=== PATIENT | male | born 1960 | race Caucasian/White ===

== ENCOUNTER 2021-04-26 12:51 | Inpatient (IN) | payer OTHER ==
[2021-04-26 15:16] VITALS: BMI 28.6
[2021-04-26] MEDS ORDERED: METHOCARBAMOL 500 MG TABLET PO PRN (15:57)
[2021-04-26] MEDS ORDERED: ACETAMINOPHEN 325 MG TABLET (FP) PO PRN ×2 (15:57)
[2021-04-26] MEDS ORDERED: MAGNESIUM HYDROX 2400MG/30ML ORAL SUSPENSION 30 ML CUP PO PRN (15:57)
[2021-04-26] MEDS ORDERED: diazePAM 5 MG TABLET PO ONE (15:57)
[2021-04-26] MEDS ORDERED: MENTHOL/PHENOL 1 EACH UD MM PRN (15:57)
[2021-04-26] MEDS ORDERED: BISMUTH SUBSALICYLATE 524 MG/30 ML PO PRN (15:57)
[2021-04-26] MEDS ORDERED: ONDANSETRON *ODT* 4 MG TABLET SL PRN (15:57)
[2021-04-26] MEDS ORDERED: MAGNESIUM CITRATE 300 ML BOTTLE PO PRN (15:57)
[2021-04-26] MEDS ORDERED: MAG HYDROX/AL HYDROX/SIMETH 30 ML UNIT-DOSE CUP PO PRN (15:57)
[2021-04-26] MEDS ORDERED: IBUPROFEN 400 MG TABLET (FP) PO PRN (15:57)
[2021-04-26] MEDS ORDERED: hydrOXYzine PAMOATE 25 MG CAPSULE (FP) PO PRN (15:57)
[2021-04-26] MEDS ORDERED: NICOTINE 10 MG CARTRIDGE (INHALER) IH PRN (15:57)
[2021-04-26] MEDS: MUPIROCIN 2% TOPICAL OINTMENT 22 GM TUBE TP SCH (22:32)
[2021-04-26] MEDS: MELATONIN 5 MG TABLETS PO SCH (22:33)
[2021-04-26] MEDS: diazePAM 5 MG TABLET PO SCH (22:33)
[2021-04-26] MEDS: THIAMINE HCL 100 MG TABLET (FP) PO SCH (22:33)
[2021-04-27] MEDS: diazePAM 5 MG TABLET PO SCH ×4 (05:22→22:54)
[2021-04-27] MEDS: methaDONE HCL 40 MG DISPERSABLE TABLET PO SCH (07:56)
[2021-04-27] MEDS: diazePAM 5 MG TABLET PO PRN (09:20)
[2021-04-27] MEDS: PRENATAL VITAMINS W/ FOLIC ACID TABLET (FP) PO SCH (10:14)
[2021-04-27] MEDS: MUPIROCIN 2% TOPICAL OINTMENT 22 GM TUBE TP SCH ×2 (10:15→22:53)
[2021-04-27] MEDS: NICOTINE 21 MG/24 HOURS TOPICAL PATCH TD SCH (10:19)
[2021-04-27 12:06] LABS: HEMATOCRIT 40.1 % (35.4-49); HEMOGLOBIN 13.6 GM/dL (11.7-16.9); MCH 31.8 pg (25.7-33.7); MEAN CELL VOLUME 93.5 fl (80-96); MEAN PLT VOLUME 7.5 fl (7.5-11.1); PLATELET COUNT 265 10^3/uL (134-434); RBC 4.28 M/mm3 (4.00-5.60); RDW 12.9 % (11.9-15.9); WHITE BLOOD COUNT 8.9 K/mm3 (4.0-10.0)
[2021-04-27 12:17] LABS: CALCIUM 8.5 mg/dL (8.5-10.1)
[2021-04-27 12:18] LABS: BLOOD UREA NITROGEN 10.3 mg/dL (7-18); CREATININE 0.7 mg/dL (0.55-1.3)
[2021-04-27 12:20] LABS: BILIRUBIN,TOTAL 0.2 mg/dL (0.2-1); TOT PROT 5.9 g/dl (6.4-8.2)
[2021-04-27] MEDS: THIAMINE HCL 100 MG TABLET (FP) PO SCH (22:54)
[2021-04-27] MEDS: MIRTAZAPINE 15 MG TABLET (FP) PO SCH (22:54)
[2021-04-27] MEDS: MELATONIN 5 MG TABLETS PO SCH (22:54)
[2021-04-27] MEDS: risperiDONE 1 MG TABLET PO SCH (22:54)
[2021-04-28] MEDS: methaDONE HCL 40 MG DISPERSABLE TABLET PO SCH (06:07)
[2021-04-28] MEDS: diazePAM 5 MG TABLET PO SCH ×3 (06:10→22:42)
[2021-04-28] MEDS: diazePAM 5 MG TABLET PO PRN (09:22)
[2021-04-28] MEDS: risperiDONE 1 MG TABLET PO SCH ×2 (10:22→22:45)
[2021-04-28] MEDS: MUPIROCIN 2% TOPICAL OINTMENT 22 GM TUBE TP SCH ×2 (10:22→22:44)
[2021-04-28] MEDS: PRENATAL VITAMINS W/ FOLIC ACID TABLET (FP) PO SCH (10:22)
[2021-04-28] MEDS: NICOTINE 21 MG/24 HOURS TOPICAL PATCH TD SCH (10:24)
[2021-04-28] MEDS: THIAMINE HCL 100 MG TABLET (FP) PO SCH (22:43)
[2021-04-28] MEDS: MELATONIN 5 MG TABLETS PO SCH (22:43)
[2021-04-28] MEDS: MIRTAZAPINE 15 MG TABLET (FP) PO SCH (22:45)
[2021-04-29] MEDS: methaDONE HCL 40 MG DISPERSABLE TABLET PO SCH (05:25)
[2021-04-29] MEDS: diazePAM 5 MG TABLET PO SCH ×2 (05:25→18:15)
[2021-04-29] MEDS: MUPIROCIN 2% TOPICAL OINTMENT 22 GM TUBE TP SCH ×2 (10:21→22:41)
[2021-04-29] MEDS: risperiDONE 1 MG TABLET PO SCH ×2 (10:21→22:40)
[2021-04-29] MEDS: PRENATAL VITAMINS W/ FOLIC ACID TABLET (FP) PO SCH (10:22)
[2021-04-29] MEDS: NICOTINE 21 MG/24 HOURS TOPICAL PATCH TD SCH (10:22)
[2021-04-29] MEDS: MIRTAZAPINE 15 MG TABLET (FP) PO SCH (22:40)
[2021-04-29] MEDS: MELATONIN 5 MG TABLETS PO SCH (22:40)
[2021-04-29] MEDS: THIAMINE HCL 100 MG TABLET (FP) PO SCH (22:40)
[2021-04-30] MEDS: methaDONE HCL 40 MG DISPERSABLE TABLET PO SCH (05:23)
[2021-04-30] MEDS ORDERED: diazePAM 5 MG TABLET PO ONE (06:00)
[2021-04-30 09:59] VITALS: BP 135/90; PULSE 86; TEMP 96.9
[2021-04-30] MEDS: MUPIROCIN 2% TOPICAL OINTMENT 22 GM TUBE TP SCH (10:40)
[2021-04-30] MEDS: NICOTINE 21 MG/24 HOURS TOPICAL PATCH TD SCH (10:40)
[2021-04-30] MEDS: risperiDONE 1 MG TABLET PO SCH (10:40)
[2021-04-30] MEDS: PRENATAL VITAMINS W/ FOLIC ACID TABLET (FP) PO SCH (10:40)
== END 2021-04-30 10:09 | disposition home or self-care (01) | DRG 897 ==
LOC: YASAS 12:51 → Y3N 16:23
PROVIDERS: ADMIT Allergy & Immunology; ATTEND Allergy & Immunology
PROC: HZ2ZZZZ Detoxification Services for Substance Abuse Treatment (ICD-10-PCS; principal; 2021-04-26)
DX: F10.230 Alcohol dependence with withdrawal, uncomplicated (principal); F11.20 Opioid dependence, uncomplicated; F14.20 Cocaine dependence, uncomplicated; F17.213 Nicotine dependence, cigarettes, with withdrawal; F31.9 Bipolar disorder, unspecified; F25.9 Schizoaffective disorder, unspecified; F41.8 Other specified anxiety disorders; F43.10 Post-traumatic stress disorder, unspecified; F19.24 Other psychoactive substance dependence with psychoactive substance-induced mood disorder; I10 Essential (primary) hypertension; M54.5 Low back pain; G89.29 Other chronic pain; Z62.810 Personal history of physical and sexual abuse in childhood
CPT/HCPCS: 36415; 80053; 85027; 86780; 93005; 93010; C9803; J2794; Q0162; U0003; U0005